=== PATIENT | female | born 1970 | race Caucasian/White ===

== ENCOUNTER 2020-07-02 23:04 | Emergency (ER) | payer OTHER, BC, SELFPAY ==
--- NOTE | ~2020-07-02 | XR_ITS ---
EXAMINATION: XR HAND, LEFT CLINICAL INFORMATION: Fall. Injury to the fifth finger. Was dislocated. COMPARISON: None TECHNIQUE: PA, lateral, and oblique views of the left hand. FINDINGS: The bones and soft tissues are normal. No fracture. Alignment is anatomic. Joint spaces are maintained. No erosions or soft tissue calcifications. XR/XR hand LT min 3V IMPRESSION: Normal left hand.
[2020-07-02 23:11] VITALS: BP 168/102; PULSE 75; RESP 16; TEMP 36.9; O2SAT 97; BMI 38.2
--- NOTE | 2020-07-02 23:33 | ED.EXTPRO ---
HPI - Extremity Problem General Chief complaint: Extremity Injury, Upper Stated complaint: FINGER DISLOCATED WORK RELATED Source: patient Mode of arrival: ambulatory Limitations: no limitations History of Present Illness HPI Narrative: 50-year-old female presents with dislocated finger after stubbing it at work. Patient does not report any other concerning symptoms. MD Complaint: extremity pain Onset (ago): hour(s) (Within the hour of arrival) Pain Consistency: constant Location: left (Fifth finger) Severity scale (1-10): 7 Quality: aching Radiation: none Exacerbating factors: range of motion and palpation Associated symptoms: denies other symptoms Related Data Allergies Allergy/AdvReac Type Severity Reaction Status Date / Time bee pollen [bee stings] AdvReac Angioedema Verified 07/02/20 23:20 Seasonal Allergies AdvReac Nasal Verified 07/02/20 23:20 congestion Review of Systems Review of Systems: Constitutional: No Fever, No Chills ENT/Mouth: No Ear Pain, No Hoarseness, No sore throat Eyes: No Eye Pain, No Swelling, No Redness, No Foreign Body Cardiovascular: No Chest Pain, No SOB Respiratory: No Cough, No Dyspnea Gastrointestinal: No Nausea, No Vomiting, No Diarrhea, No abdominal Pain Genitourinary: No Dysuria, No Hematuria Musculoskeletal: positive left 5th finger pain, No Myalgias, No Joint Swelling Skin: No Skin lacerations, No rash Neuro: No Weakness, No Numbness, No Paresthesias, No Loss of Consciousness, No Dizziness, No Headache Psych: No Anxiety/Panic, No Depression Heme/Lymph: no easy bruising, no Lymphadenopathy Endocrine: No Polyuria, No Polydipsia Yes all other systems are reviewed and are negative [facility] Past Medical History Attestation statement: The following information was validated with the patient. Source: old records reviewed Medical History No known health problems Social History Social History Advance Directives: No Physical Exam Vital Signs: Vital Signs: Last Vital Signs Temp 98.4 F 07/02/20 23:11 Pulse 75 07/02/20 23:11 Resp 16 07/02/20 23:11 BP 168/102 H 07/02/20 23:11 Pulse Ox 97 07/02/20 23:11 Body Mass Index 38.2 Appearance: Alert. Oriented X3. No acute distress. Eyes: Pupils equal, round and reactive to light. ENT: Pharynx normal. Neck: Normal inspection. Neck supple. CVS: Normal heart rate and rhythm. Pulses normal. Respiratory: No respiratory distress. Breath sounds normal. Abdomen: Soft and nontender. Skin: Skin warm and dry. Normal skin color. Normal skin turgor. Extremities: Moves all extremities against resistance, full range of motion to all digits. Neuro: No motor deficit. No sensory deficit. Course Course Course Narrative: 50-year-old female presents with a left 5th finger dislocation. Dr. Howard was able to successfully reduce the finger back into place prior to my assessment. At the time of my assessment patient does have a normal-looking hand, with a normal x-ray. Fingers will be derek-taped, patient was advised to follow up with work connection as needed. 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 Patient verbalized understanding of and agrees plan of care to discharge home. MDM - Extremity (Nontraumatic) MDM Narrative Medical decision making narrative: 5th finger dislocation Imaging Data Finger x-ray: Attestation: I personally reviewed and interpreted this imaging study as follows: Radiologist's impression: CLINICAL INFORMATION: Fall. Injury to the fifth finger. Was dislocated. COMPARISON: None TECHNIQUE: PA, lateral, and oblique views of the left hand. FINDINGS: The bones and soft tissues are normal. No fracture. Alignment is anatomic. Joint spaces are maintained. No erosions or soft tissue calcifications. XR/XR hand LT min 3V IMPRESSION: Normal left hand. Discharge Plan Discharge Clinical Impression: Dislocation of finger Patient Disposition: Home, Self-Care Instructions: Closed Reduction (ED), Finger Dislocation (ED) Additional Instructions: You were evaluated for dislocated finger. Dr. Howard was able to pull the finger back into place. Please follow-up with work connection as needed. Use Tylenol or Motrin pain management. Thank you for choosing this emergency department for evaluation. Please follow-up with primary care physician as needed. Return to the emergency department for any new, concerning, or worsening symptoms. Referrals: Chico Cotton MD [Physician] - 2 days (Finger dislocation) Stand Alone Forms: Work/School Release Interventions: ED Discharge Assessment Last Done: 07/02/20 23:54 Discharge Date/Time: 07/02/20 23:57
== END 2020-07-02 23:57 | disposition home or self-care (01) ==
PROVIDERS: Emergency Provider Internal Medicine
DX: S63.257A Unspecified dislocation of left little finger, initial encounter (principal); M79.645 Pain in left finger(s); Y33.XXXA Other specified events, undetermined intent, initial encounter; Y93.9 Activity, unspecified; Y92.9 Unspecified place or not applicable; Y99.0 Civilian activity done for income or pay
CPT/HCPCS: 26700; 73130; 96372; 99284